=== PATIENT | female | born 1975 | race Caucasian/White ===

== ENCOUNTER → 2025-02-07 13:18 | Outpatient (BNVA) | payer OTHER, SELFPAY | PROVIDERS: PCP Internal Medicine; Visit Provider Physician Assistant Medical | DX: S50.02XA Contusion of left elbow, initial encounter (principal); W22.09XA Striking against other stationary object, initial encounter; M77.12 Lateral epicondylitis, left elbow | CPT/HCPCS: 73080; 99203 ==

== ENCOUNTER → 2025-02-10 08:41 | Outpatient (BNVA) | payer OTHER, SELFPAY | PROVIDERS: PCP Internal Medicine; Visit Provider Physician Assistant Medical | DX: S50.02XA Contusion of left elbow, initial encounter (principal); W22.09XA Striking against other stationary object, initial encounter; M77.12 Lateral epicondylitis, left elbow; Z02.79 Encounter for issue of other medical certificate | CPT/HCPCS: 99213 ==